=== PATIENT | female | born 1990 | race Caucasian/White ===

== ENCOUNTER 2017-05-19 16:17 | Outpatient (CLI) | payer OTHER | END 2017-05-19 16:18 | LOC: LABRHC 16:17 | PROVIDERS: ATTEND Physician Assistant | DX: Z12.4 Encounter for screening for malignant neoplasm of cervix (principal) | CPT/HCPCS: 88148; G0143 ==

== ENCOUNTER 2018-06-14 15:11 | Outpatient (CLI) | payer OTHER | END 2018-06-14 15:13 | LOC: LABRHC 15:11 | PROVIDERS: ATTEND Family Medicine | DX: Z12.4 Encounter for screening for malignant neoplasm of cervix (principal) | CPT/HCPCS: 87624; 88148; G0143 ==

== ENCOUNTER 2018-12-14 16:18 | Outpatient (CLI) | payer OTHER ==
[2018-12-14 17:43] LABS: BASOPHILS % 0.6 % (0.0-1.5); NEUTROPHILS # 4.5 # k/uL (1.4-7.7)
[2018-12-14 18:23] LABS: eGFR (Non-African) > 60
== END 2018-12-14 16:23 | disposition home or self-care (01) ==
LOC: LAB 16:18
PROVIDERS: ATTEND Family Medicine
DX: R53.82 Chronic fatigue, unspecified (principal)
CPT/HCPCS: 36415; 80053; 82607; 84443; 85025